=== PATIENT | female | born 1980 | race Two or more races ===

== ENCOUNTER 2024-11-04 13:58 | Emergency (ER) | payer OTHER ==
[~2024-11-04] VITALS: Ht 167.6 cm; Wt 77.1 kg
[2024-11-04] MEDS ORDERED: SYNTHROID150 MCG PO (15:11)
[2024-11-04] MEDS ORDERED: GABAPENTIN600 MG PO (15:11)
[2024-11-04] MEDS ORDERED: DEXAMETHASONE SODIUM PHOSPHATE 4 MG/ML VIAL IM STA (15:40)
[2024-11-04] MEDS ORDERED: ORPHENADRINE CITRATE 30 MG/ML AMPUL IM STA (15:41)
[2024-11-04] MEDS ORDERED: KETOROLAC TROMETHAMINE 60 MG VIAL IM STA (15:42)
[2024-11-04 16:30] LABS: HEMATOCRIT 34.2 % (36.0-45.00); HEMOGLOBIN 11.8 g/dL (12.0-15.00); MEAN CELL VOLUME 90.1 fL (80.00-100.00); MEAN CORPUSCULAR HEMOGLOBIN 31.1 pg (27.00-32.0); MEAN CORPUSCULAR HGB CONC 34.5 g/dl (32.0-36.0); PLATELET COUNT 254 K/uL (150-450); RED CELL DISTRIBUTION WIDTH 13.3 % (11.5-14.5)
[2024-11-04 17:06] LABS: PH,URINE 5.5 (5.0-8.0); URINE APPEARANCE Clear; URINE BILIRRUBIN Negative (NEGATIVE); URINE BLOOD Negative; URINE COLOR Dark Yellow; URINE GLUCOSE Negative (NEGATIVE); URINE KETONE Trace (NEGATIVE); URINE LEUKOCYTE Small; URINE NITRATE Negative; URINE PROTEIN Trace (NEGATIVE)
[2024-11-04 17:09] LABS: URINE BACTERIA 731.8 uL (0.0-1933); URINE RBC 11.3 uL (0.0-20.8); URINE WBC 192.3 uL (0.0-23.2)
[2024-11-04 17:15] LABS: URINE CAST 0.58 uL (0.0-1.40)
[2024-11-04] MEDS ORDERED: CIPRO500 MG PO (21:50)
== END 2024-11-04 22:39 | disposition home or self-care (01) ==
LOC: ER 14:01
DX: N39.0 Urinary tract infection, site not specified (principal); M54.9 Dorsalgia, unspecified; Z88.6 Allergy status to analgesic agent